=== PATIENT | female | born 1975 | race Two or more races ===

== ENCOUNTER 2022-08-05 16:56 | Emergency (ER) | payer OTHER ==
[~2022-08-05] VITALS: Ht 172.7 cm; Wt 72.6 kg
[2022-08-05] MEDS ORDERED: GLUMETZA500 MG (17:18)
== END 2022-08-05 20:51 | disposition home or self-care (01) ==
LOC: ER 16:56
DX: H66.90 Otitis media, unspecified, unspecified ear (principal)